=== PATIENT | female | born 1960 | race Caucasian/White ===

== ENCOUNTER 2023-05-20 14:50 | Emergency (ER) | payer OTHER ==
--- NOTE | 2023-05-20 16:26 | ERPHSYRPT ---
- History of Present Illness Time Seen by Provider: 05/20/23 15:15 Source: patient Exam Limitations: no limitations Patient Subjective Stated Complaint: stood up from chair and heard a pop and immediate sharp, constant pain. 10/10. can not bear weight. Triage Nursing Assessment: patient appears to very uncomfortable. brought in via stretcher per ambulance. unable to bear weight right foot. external rotation right foot. faint pedal pulse Physician History: 63-year-old female with history of multiple foot surgeries in the past currently incarcerated is brought in the ER after she tried to stand up from a sitting pos ition and heard a popping sound with sudden severe 10/10 intensity sharp pain making her unable to bear any weight. Pain is more in the anteromedial aspect of the foot. Is able to move her toes. Allergies/Adverse Reactions: Sulfa (Sulfonamide Antibiotics) Allergy (Verified 09/18/17 10:18) Home Medications: Ibuprofen [Ibu] 600 mg PO TIDPRN PRN 10/09/17 [History] PARoxetine HCL [Paxil] 10 mg PO DAILY 05/20/23 [History] Hx Tetanus, Diphtheria Vaccination/Date Given: Yes Hx Influenza Vaccination/Date Given: Yes (march 2023) Hx Pneumococcal Vaccination/Date Given: Yes Immunizations Up to Date: Yes Travel Risk - International Travel Have you traveled outside of the country in past 3 weeks: No - Coronavirus Screening Are you exhibiting any of the following symptoms?: No Close contact with a COVID-19 positive Pt in past 14-21 Days: No - Vaccine Status Have you recieved a Covid-19 vaccination: No - Review of Systems Constitutional: No Symptoms Respiratory: No Symptoms Cardiac: No Symptoms Abdominal/Gastrointestinal: No Symptoms Musculoskeletal: Arthralgias, Joint Pain Skin: No Symptoms Neurological: No Symptoms Endocrine: No Symptoms Hematologic/Lymphatic: No Symptoms - Past Medical History Neurological History: No Pertinent History ENT History: No Pertinent History Cardiac History: No Pertinent History Respiratory History: Asthma Endocrine Medical History: No Pertinent History Musculoskeletal History: Arthritis, Fractures GI Medical History: No Pertinent History History: No Pertinent History Psycho-Social History: Anxiety, Depression Female Reproductive Disorders: No Pertinent History - Past Surgical History Past Surgical History: Yes Neuro Surgical History: No Pertinent History Cardiac: No Pertinent History Respiratory: No Pertinent History Gastrointestinal: No Pertinent History Genitourinary: No Pertinent History Musculoskeletal: Orthopedic Surgery Female Surgical History: No Pertinent History Other Surgical History: 6 foot surgeries from fallen arch - Social History Smoking Status: Former smoker Exposure to second hand smoke: No Drug Use: marijuana, methamphetamines Patient Lives Alone: No (usp) - Nursing Vital Signs Nursing Vital Signs: Initial Vital Signs O2 Sat by Pulse Oximetry 96 05/20/23 16:26 Pain Scale Pain Intensity 4 - Physical Exam General Appearance: no apparent distress, alert Eyes, Ears, Nose, Throat Exam: normal ENT inspection Neck Exam: normal inspection, full range of motion Cardiovascular/Respiratory Exam: normal breath sounds, regular rate/rhythm Gastrointestinal/Abdominal Exam: non-tender, soft Back Exam: normal inspection, normal range of motion Ankle Exam: right ankle: bone tenderness (Anteromedial proximal foot), limited range of motion, pain, left ankle: non-tender, normal inspection, normal range of motion, no evidence of injury Foot Exam: right foot: bone tenderness, limited range of motion, pain, left foot: non-tender, normal inspection, normal range of motion, no evidence of injury Neuro/Tendon Exam: No normal sensation Mental Status Exam: alert, oriented x 3, cooperative Skin Exam: normal color SpO2 Interpretation: normal SpO2: 96 O2 Delivery: Room Air Ordered Tests: Active Orders 24 hr Category Date Time Status ANKLE (3 VIEWS) Stat Exams 05/20/23 15:18 Completed FOOT (MINIMUM 3 VIEWS) Stat Exams 05/20/23 15:18 Completed Medication Summary Discontinued Medications Generic Name Dose Route Start Last Admin Trade Name Courtney PRN Reason Stop Dose Admin Morphine Sulfate 4 mg 05/20/23 16:28 05/20/23 16:45 Morphine Sulfate 4 Mg/Ml Injection IM 05/20/23 16:29 4 mg STAT ONE Administration Morphine Sulfate Confirm 05/20/23 16:31 Morphine Sulfate 4 Mg/Ml Injection Administered 05/20/23 16:32 Dose 4 mg .ROUTE .STK-MED ONE Ondansetron HCl 4 mg 05/20/23 16:34 05/20/23 16:45 Ondansetron Hcl 4 Mg/2 Ml Vial IV 05/20/23 16:35 4 mg STAT ONE Administration Ondansetron HCl Confirm 05/20/23 16:35 Ondansetron Hcl 4 Mg/2 Ml Vial Administered 05/20/23 16:36 Dose 4 mg .ROUTE .STK-MED ONE - Progress Progress: pain not gone completely, re-examined Progress Note: 05/20/23 18:11 63-year-old female with history of multiple foot surgeries in the past currently incarcerated is brought in the ER after she tried to stand up from a sitting position and heard a popping sound with sudden severe 10/10 intensity sharp pain making her unable to bear any weight. Pain is more in the anteromedial aspect of the foot. Is able to move her toes. She is given symptomatic treatment for pain, on reevaluation her pain is better but not completely resolved. I have obtained x-rays of ankle/foot which are negative for acute fracture dislocation reviewed by me followed by official read. I believe patient has ligament injury, placed in a long boot with crutches and outpatient podiatry follow-up. Discussed signs symptoms of worsening needing return to ER which she seems understanding. Counseled pt/family regarding: diagnosis, need for follow-up, rad results Medical Desision Making - Diagnostic Testing Diagnostic test were ordered, analyzed, and reviewed by me: Yes Radiological Interpretation: Interpreted by me, Reviewed by me - Risk of complications The pt has a mod risk of morbidity or mortality based on: Need for prescription drug management - Departure Departure Disposition: [facility]Care [facility] Clinical Impression: Right foot sprain Condition: Stable Critical Care Time: No Referrals: MARCIN COVARRUBIAS MD [Primary Care Provider] - Follow up/PCP as directed GREGORIA ARREAGA DPM [ACTIVE STAFF] - Follow up/PCP as directed (Tomorrow for reevaluation) Additional Instructions: Nonweightbearing, Tylenol/ibuprofen as needed. Keep it elevated, intermittent ice application. Follow-up with primary care/podiatry for reevaluation in the morning. Return to ER for any worsening. Prescriptions: Ibuprofen 600 mg PO Q6HPRN PRN 10 Days #20 tablet PRN Reason: Pain
[2023-05-20] MEDS ORDERED: MORPHINE SULFATE 4 MG INJ IM ONE (16:28)
[2023-05-20] MEDS ORDERED: MORPHINE SULFATE 4 MG INJ ONE (16:31)
[2023-05-20] MEDS ORDERED: Zofran 4 MG/2 ML VIAL IV ONE (16:34)
[2023-05-20] MEDS ORDERED: Zofran 4 MG/2 ML VIAL ONE (16:35)
[2023-05-20 17:47] VITALS: PULSE 74; RESP 18
--- NOTE | 2023-05-20 17:54 | XRAY ---
CLINICAL HISTORY:right foot pain/injury COMPARISON:None. TECHNIQUE:X-ray of right foot, AP, oblique, and lateral views. FINDINGS: An orthopedic pin is seen overlying the calcaneus. Staple-like metallic hardware is also seen overlying the proximal tarsal bones. No surrounding lucencies seen to suggest loosening. No breakage noted. Smaller pins are seen at the 2nd to 4th proximal interphalangeal joints, which appear intact. There is decreased bone density. The tarso-tarsal and tarso-metatarsal joint spaces are narrowed. The 1st metatarsophalangeal jont space exhibit subchonral sclerosis, but with maintained joint space. There is a spur along the plantar aspect of the calcaneus. No acute fracture or dislocation. Soft tissues appear unremarkable. IMPRESSION: 1. An orthopedic pin overlying the calcaneus and staple-like metallic hardwares overlying the proximal tarsal bones with no evidence of losseining or break. 2. Smaller pins at the 2nd to 4th proximal interphalangeal joints, which appear intact. 3. Osteopenia. 4. Osteoarthritic changes, tarso-tarsal and tarso-metatarsal joints, as well as 1st metatarsophalangeal jont 5. Calcaneal spur 6. No acute osseous findings DISCLAIMER:A subtle bone abnormality or fracture may not be readily apparent on x-rays, thus clinical correlation and further imaging including follow up CT, MRI, or follow up x-rays are advised as needed Electronically Signed by: Stone Castillo MD. (05/20/2023 17:50:38 EST)
--- NOTE | 2023-05-20 17:56 | XRAY ---
CLINICAL HISTORY:right ankle pain/injury COMPARISON:None. TECHNIQUE:X-ray right ankle AP, lateral and oblique views. FINDINGS: The talo-tibial joint space is maintained with subchondral sclerosis of the apposed joints. The lateral malleolus shows areas of small lucencies, likely a degenerative change An orthopedic pin is seen overlying the calcaneus. Staple-like metallic hardware are also seen overlying the proximal tarsal bones. No surrounding lucencies seen to suggest loosening. No breakage noted. The tarso-tarsal and tarso-metatarsal joint spaces are narrowed. There is decreased bone density. Small plantar calcaneal spur noted. No fracture seen. Soft tissues are normal. Fat planes are intact. IMPRESSION: 1. Degenerative osseous changes, talo-tibial joint, and lateral malleolus 2. Osteoarthritic changes, tarso-tarsal and tarsometatarsal joints 3. An orthopedic pin overlying the calcaneus and staple-like metallic hardware overlying the proximal tarsal bones with no evidence of loosening or breaking. 4. Osteopenia. 5. Calcaneal spur. 6. No acute osseous findings (Disclaimer: "A subtle bone abnormality or fracture may not be readily apparent on x-rays, thus clinical correlation and further imaging including follow-up CT, MRI, or follow-up x-rays are advised as needed"). Electronically Signed by: Stone Castillo MD. (05/20/2023 17:52:19 EST)
[2023-05-20 18:16] VITALS: O2SAT 96
== END 2023-05-20 18:34 | disposition home or self-care (01) ==
LOC: ED 14:50
DX: S93.601A Unspecified sprain of right foot, initial encounter (principal); X50.0XXA Overexertion from strenuous movement or load, initial encounter; Z79.899 Other long term (current) drug therapy; Z28.310 Unvaccinated for COVID-19
CPT/HCPCS: 73610; 73630; 96374; 96375; 99284; J2270; J2405; L4386